=== PATIENT | male | born 1965 | race Caucasian/White ===

== ENCOUNTER → 2021-06-22 | Outpatient (CLI) | payer BC ==
--- NOTE | 2021-06-22 12:55 | CT ---
EXAMINATION TYPE: CT abdomen pelvis wo con DATE OF EXAM: 06/22/2021 COMPARISON: None INDICATION: Pelvic pain with history of stones. DLP: 1130 mGycm, Automated exposure control for dose reduction was used. CONTRAST: 0 mL of Isovue 300. Study performed without Oral Contrast TECHNIQUE: Axial images were obtained from above the diaphragm to the pubic rami in the axial plane a t 5 mm thick sections. Reconstructed images are reviewed on the computer in the coronal plane. FINDINGS: Limited CT sections are obtained the lung bases. Lung bases appear clear.. CT ABDOMEN: Liver: Normal Spleen: Normal Pancreas: Normal Adrenal glands: The adrenal glands are normal. Gallbladder: Normal Kidneys: No masses are evident. No cysts are present. There is a 0.7 cm nonobstructing left posterio r mid renal stone. There is mild left hydronephrosis and hydroureter. Hydroureter extends to the dist al ureter. There is a 0.5 cm calcification at the left ureterovesical junction. Slightly superior and additional 0.6 cm calcification may be present, series 3 image 135. This may be a phlebolith. Aorta: Normal Inferior vena cava: Normal. CT PELVIS: Loops of bowel within the abdomen and pelvis are normal. This study is performed without oral con trast limiting bowel evaluation. Appendix: Not identified. No dilated tubular structure or inflammatory changes are evident. Urinary bladder: Normal. Genitourinary structures: Prostate is slightly prominent Osseous structures: No suspicious lytic or sclerotic lesions. IMPRESSIONS: 1. 0.5 cm obstructing distal left ureterovesical junction stone with mild left hydronephrosis and hy droureter. 2. A second 0.6 cm distal ureteral stone may be present as well. Differential would include phlebolit h this level. 3. Nonobstructing posterior mid and inferior pole left renal calcification.
== END | disposition home or self-care (01) ==
LOC: RADCTMAIN 12:05
PROVIDERS: ATTEND Urology
DX: N13.0 Hydronephrosis with ureteropelvic junction obstruction (principal); N28.89 Other specified disorders of kidney and ureter; R31.1 Benign essential microscopic hematuria
CPT/HCPCS: 74176